=== PATIENT | female | born 1980 | race Caucasian/White ===

== ENCOUNTER 2017-07-09 21:59 | Emergency (ER) | payer SELFPAY ==
[2017-07-09 22:08] VITALS: BP 131/82; BMI 36.8
[2017-07-09 22:53] LABS: SERUM PREGNANCY TEST, QUAL NEGATIVE <10 mIU/mL
[2017-07-09 22:54] LABS: APPEARANCE,URINE CLOUDY (CLEAR); BACTERIA,URINE 2+ /HPF (Negative); COLOR,URINE ORANGE (YELLOW); RBC,URINE NONE SEEN /HPF (NEGATIVE); SQUAMOUS EPITHELIAL CELL,UR FEW /HPF (NEGATIVE)
[2017-07-09] MEDS ORDERED: LEVAQUIN TAB 750 MG PO STA (23:09)
[2017-07-09] MEDS ORDERED: PYRIDIUM PO STA (23:10)
[2017-07-09] MEDS ORDERED: MOTRIN TAB 800 MG PO STA (23:11)
[2017-07-09] MEDS ORDERED: LEVAQUIN TAB 250 MG ONE (23:14)
[2017-07-09] MEDS ORDERED: PYRIDIUM PO ONE (23:14)
[2017-07-09] MEDS ORDERED: LEVAQUIN TAB 500 MG ONE (23:14)
[2017-07-09] MEDS ORDERED: MOTRIN TAB 800 MG PO ONE (23:14)
--- NOTE | 2017-07-09 23:24 | DR.GENAD ---
HPI - PCP Primary Care Physician: morro - Complaint/Symptoms Chief Complaint Doctors Comments: Patient is complainingof left lower back pain and lower abdominal pain with burning when she urinates for the past three days getting worst today. She denies fever, chills, nausea or vomiting but states it shore everytime she urinates. States she is a patient of Stephania Miles. states she has been taking the AZO without imrpovement. Chief Complaint:: BURNING AND PAIN WITH URINATION; URINARY FREQUENCY; CHILLS; LOWER ABDOMINAL PAIN; RIGHT AND LEFT FLANK PAIN Self Treatment fo Chief Complaint: AZO TID SINCE TUESDAY; CRANBERRY JUICE AND WATER - Nurses notes reviewed Nurses Notes Review: Yes - Source History Provided: Patient - Mode of Arrival Mode of Arrival: Ambulatory - Timing Onset of Chief Complaint: 07/06/17 Came on: Gradually - Duration Duration: Constant Duration: Hours, Days - Location Location: left lower back and lower left abdomen - Severity Severity: Moderate - Modifying Factors Worsens:: movement; urination Improves:: medicine helped for a while PMH - PMH Past Medical History: Yes Past Medical History: Hyperthyroidism Past Surgical History: Yes Past Surgical History Comment: HERNIA REPAIR - Family History History of Family Medical Conditions: Yes Family Medical History: Diabetes Mellitus, Cancer, Sudden Cardiac - Social History Type of Tobacco Use: None Alcohol Use: Occasionally Do you use any recreational Drugs:: No Lives With: Family Lives Where: Home - infectious screening In the last 2 months have you had wt loss of >10#?: NO Have you had fever, night sweats or hemotysis?: No Have you traveled outside the country in the last 6 months?: No Isolation: Standard ROS - Review of Systems Constitutional: No Symptoms Reported. negative: See HPI, Chills, Diaphoresis, Fever, Malaise, Weakness, Irritable, Fatigue, Loss of Appetite, Other Eyes: No Symptoms Reported ENTM: No Symptoms Reported. negative: See HPI, Ear Pain, Ear Discharge, Pulling on Ears, Hearing Loss, Nose Pain, Nose Discharge, Epistaxis, Nose Congestion, Mouth Pain, Mouth Swelling, Loose Teeth, Drooling, Throat Pain, Throat Swelling, Ear Foreign Body Respiratoy: No Symptoms Reported. negative: See HPI, Productive Cough, Non- Productive Cough, Moist Cough, Dry Cough, Hacking Cough, Barking Cough, Brassy Cough, Orthopnea, Short of Breath, Stridor, Wheezing, Hemoptysis, Other Gastrointestinal/Abdominal: No Symptoms Reported, Abdominal Pain. negative: See HPI, Constipation, Diarrhea, Nausea, Vomiting, Food Intolerance, Other Genitourinary: No Symptoms Reported, Dysuria, Frequency, Pain. negative: See HPI, Discharge, Hematuria, Bleeding, Other Neurological: No Symptoms Reported Musculoskeletal: No Symptoms Reported, Back Pain Integumentary: No Symptoms Reported. negative: See HPI, Change in Color, Change in Hair/Nails, Dryness, Lesions, Lumps, Rash, Itching, Wound, Bruises, Juandice, Other Hematologic/Lymphatic: No Symptoms Reported. negative: See HPI, Anemia, Blood Clots, Easy Bleeding, Easy Bruising, Swollen Glands, Lymphadenopathy, Other Endocrine: No Symptoms Reported. negative: See HPI, Excessive Sweating, Flushing, Intolerance to Cold, Intolerance to Heat, Increased Hunger, Increased Thirst, Increased Urine, Unexplained Weight Gain, Unexplained Weight Loss, Failure to Thrive, Decreased Appetite, Other Psychiatric: No Symptoms Reported. negative: See HPI, Anxiety, Depression, Hallucinations, Excessive crying, Suicidal, Other PE - Vital Signs Vitals: Temperature 98.3 F Pulse Rate 104 Respiratory Rate 20 Blood Pressure 131/82 O2 Sat by Pulse Oximetry 96 - General Limitations: No Limitations, Language Barrier, Physical Limitation General Appearance: Alert, In No Apparent Distress, Appears Intoxicated, Lethargic - Head Head Exam: Normal Inspection, Atraumatic, Normocephalic, Other - Eyes Eye exam: Normal Appearance, PERRL, EOMI, Scleral Icterus, Nystagmus - ENT ENT Exam: Normal Exam, Normal Oropharynx, Normal External Ear Exam, Mucous Membranes Moist, TM's Normal Bilaterally External Ear Exam: Normal External Inspection TM/Canal Exam: Bilateral Normal Nose Exam: Normal Nose Exam Mouth Exam: Normal Inspection. negative: Drooling, Trismus, Lip Swelling, Tongue Elevation, Tongue Swelling, Laceration, Other Throat Exam: Normal Inspection - Neck Neck Exam: Normal Inspection, Full ROM, Trachea Midline. negative: Tenderness, Meningismus, Lymphadenopathy, Thyromegaly, Other - Chest Chest Inspection: Normal Inspection - Respiratory Respiratory Exam: Normal Lung Sounds Bilat Respiratory Exam: Bilateral Clear to Auscultation - Cardiovascular Cardiovascular Exam: Regular Rate, Normal Rhythm, Normal Heart Sounds. negative : Bradycardia, Tachycardia, Irregular Rhythm, Systolic Murmur, Diastolic Murmur , Rubs, Gallop, Clicks, JVD, +S1, +S2, +S3, +S4, Other - Abdominal Exam Abdominal Exam: Normal Inspection, Normal Bowel Sounds, Soft, Guarding Abdominal Tenderness: LLQ, Suprapubic, Moderate - Extremities Extremities Exam: Normal Inspection, Full ROM, Normal Capillary Refill. negative: Tenderness, Edema, Joint Swelling, Calf Tenderness, Other - Back Back Exam: Normal Inspection, Full ROM, Tenderness, (L) CVA Tenderness, Paraspinal Tenderness - Neurologic Neurological Exam: Alert, Oriented X3, CN II-XII Intact, Normal Gait, Reflexes Normal - Psychiatric Psychiatric Exam: Normal Affect, Normal Mood. negative: Depressed, Agitated, Anxious, Flat Affect, Manic, Homicidal Ideation, Suicidal Ideation, Other - Skin Skin Exam: Warm, Dry, Intact, Normal Color ROR - Labs Reviewed Laboratory: HCG, Qual Negative <10 mIU/mL 07/09/17 22:30 Specimen Type Clean catch urine 07/09/17 22:26 Urine Color [place] (YELLOW) 07/09/17 22:26 Urine Appearance Cloudy (CLEAR) 07/09/17 22:26 Urine RBC None seen /HPF (NEGATIVE) 07/09/17 22:26 Urine WBC Tntc /HPF (NEGATIVE) 07/09/17 22:26 Ur Squamous Epith Cells Few /HPF (NEGATIVE) 07/09/17 22:26 Urine Bacteria 2+ /HPF (Negative) 07/09/17 22:26 Ur Culture Indicated? Yes/culture set up 07/09/17 22:26 Micro UA Comment Unable to perform (-) 07/09/17 22:26 - Diagnosis Discharge Problem: Urinary tract infection, acute, Dysuria - Discharge Plan Disposition: 01 HOME, SELF-CARE Condition: Stable Prescriptions: Cephalexin [KEFLEX CAP 500 MG *] 500 mg PO TID PRN #30 cap PRN Reason: Phenazopyridine HCl [Pyridium] 200 mg PO TID PRN #14 tablet PRN Reason: - Follow ups/Referrals Follow ups/Referrals: Prince Matos [Primary Care Provider] - 3 days - Instructions Instructions: Urinary Tract Infection, Adult
== END 2017-07-09 23:50 | disposition home or self-care (01) ==
LOC: ER 21:59
DX: N39.0 Urinary tract infection, site not specified (principal); B96.29 Other Escherichia coli [E. coli] as the cause of diseases classified elsewhere; R30.0 Dysuria
CPT/HCPCS: 36415; 81015; 84703; 87086; 87088; 87186; 99282

== ENCOUNTER 2020-04-16 06:36 | Inpatient (IN) ==
[~2020-04-16 06:36] MED LIST: DIPRIVAN VIAL ONE; NORCURON INJ 10 MG VIAL ONE; QUELICIN (OR ANECTINE) ONE; ROBINUL ONE; SUPRANE ONE; VERSED ONE; ZOFRAN INJ 4 MG VIAL ONE
[2020-04-16] MEDS: D5 1/2 NS 1000 ML 1,000 ML IV SCH ×3 (06:38→23:00)
[2020-04-16] MEDS ORDERED: ANCEF VIAL 1 GRAM IVP ONE (06:38)
[2020-04-16] MEDS ORDERED: ANCEF 1 GRAM IV PREMIX* 2 G/100 ML BAG IV ONE (06:48)
[2020-04-16] MEDS ORDERED: ProvayBLUE 0.5% ONE (06:57)
[2020-04-16] MEDS ORDERED: BETADINE SOLN ONE (06:58)
[2020-04-16 07:11] VITALS: BMI 34.1
[2020-04-16] MEDS ORDERED: FENTANYL INJ 250 mcg ONE (07:21)
[2020-04-16] MEDS ORDERED: DILAUDID INJ ONE ×2 (08:42→09:31)
[2020-04-16] MEDS ORDERED: D5 1/2 NS 1000 ML 1,000 ML IV ONE (08:51)
[2020-04-16] MEDS ORDERED: SUPRANE ONE (09:01)
[2020-04-16] MEDS ORDERED: REGLAN INJ 10 MG VIAL IVP PRN (09:19)
[2020-04-16] MEDS ORDERED: BENADRYL INJ 50 MG VIAL IVP PRN (09:19)
[2020-04-16] MEDS ORDERED: PHENERGAN INJ 25 MG IM PRN (09:19)
[2020-04-16] MEDS ORDERED: ZOFRAN INJ 4 MG VIAL IVP PRN (09:19)
[2020-04-16] MEDS ORDERED: DILAUDID INJ IVP PRN (09:19)
[2020-04-16] MEDS ORDERED: D5 1/2 NS 1000 ML 1,000 ML IV SCH (10:12)
[2020-04-16] MEDS: BENADRYL INJ 50 MG VIAL IVP PRN (10:26)
[2020-04-16] MEDS: MORPHINE SULFATE PCA 30 MG IVP PRN ×2 (10:28→14:44)
[2020-04-16] MEDS: ZOFRAN INJ 4 MG VIAL IVP PRN ×2 (13:29→17:28)
[2020-04-16] MEDS: TORADOL 30 MG VIAL IVP PRN ×2 (14:13→21:22)
[2020-04-17 05:56] LABS: BLOOD UREA NITROGEN 6 mg/dL (7-18); CALCIUM 7.7 mg/dL (8.5-10.1); CARBON DIOXIDE 25.6 mmol/L (21-32); CHLORIDE 107 mmol/L (98-107); COR NA(FOR HYPERGLY) 139 mmol/L (136-145); SODIUM 139 mmol/L (136-145); eGFR NON BLACK RACES > 60 (>60)
[2020-04-17 06:13] LABS: BASOPHILS % (AUTO) 0.2 % (0.2-1.0); EOSINOPHILS % (AUTO) 0.8 % (0.9-2.9); HEMOGLOBIN 10.1 g/dL (12.0-16.0); LYMPHOCYTES # (AUTO) 1.4 X10^3/uL (1.3-2.9); LYMPHOCYTES % (AUTO) 28.3 % (21.0-51.0); MEAN CORPUSCULAR HEMOGLOBIN 27.8 pg (27.0-34.0); MEAN CORPUSCULAR HGB CONC 33.7 g/dL (33.0-35.0); MEAN CORPUSCULAR VOLUME 82.5 fL (80.0-100.0); MEAN PLATELET VOLUME 7.9 fL (7.4-11.0); MONOCYTES # (AUTO) 0.5 x10^3/uL (0.3-0.8); MONOCYTES % (AUTO) 9.5 % (0.0-13.0); NEUTROPHILS % (AUTO) 61.2 % (42.0-75.0); PLATELET COUNT 199 X10^3/uL (150.0-450.0); RED BLOOD COUNT 3.63 X10^6/uL (3.5-5.4); RED CELL DISTRIBUTION WIDTH 15.5 % (11.6-16.5); WHITE BLOOD COUNT 4.9 X10^3/uL (3.6-10.0)
[2020-04-17] MEDS: TORADOL 30 MG VIAL IVP PRN ×3 (06:20→22:55)
[2020-04-17] MEDS: D5 1/2 NS 1000 ML 1,000 ML IV SCH (06:39)
[2020-04-17] MEDS ORDERED: BACTROBAN TOPICAL OINT ONE (08:21)
[2020-04-17] MEDS: LASIX PO SCH (08:24)
[2020-04-17] MEDS: ESTRACE PO SCH (08:25)
[2020-04-17] MEDS: MOTRIN TAB 800 MG PO PRN ×2 (08:25→14:24)
[2020-04-17] MEDS: COLACE CAP 100 MG PO SCH ×2 (08:26→20:42)
[2020-04-17] MEDS: BACTROBAN TOPICAL OINT TOP SCH ×2 (08:26→14:25)
[2020-04-17] MEDS: PHENERGAN INJ 25 MG IM PRN ×3 (10:00→20:41)
[2020-04-17] MEDS: PERCOCET TAB 5/325 MG PO PRN ×2 (11:49→20:41)
[2020-04-17] MEDS: LOVENOX INJ 40 MG SYR SC SCH (11:59)
[2020-04-17] MEDS ORDERED: SYNTHROID 75 mcg TAB PO SCH (16:30)
[2020-04-17] MEDS: BENADRYL INJ 50 MG VIAL IVP PRN (22:56)
[2020-04-18] MEDS: BACTROBAN TOPICAL OINT TOP SCH ×2 (02:39→05:50)
[2020-04-18] MEDS: MOTRIN TAB 800 MG PO PRN (07:30)
[2020-04-18 08:14] VITALS: BP 112/65
[2020-04-18] MEDS: ESTRACE PO SCH (09:07)
[2020-04-18] MEDS: COLACE CAP 100 MG PO SCH (09:07)
[2020-04-18] MEDS: LASIX PO SCH (09:07)
[2020-04-18] MEDS: TORADOL 30 MG VIAL IVP PRN (09:08)
[2020-04-18] MEDS: LOVENOX INJ 40 MG SYR SC SCH (09:08)
== END 2020-04-18 10:35 | disposition home or self-care (01) | DRG 743 ==
LOC: MED/SURG 06:36
PROVIDERS: ADMIT Specialist; ATTEND Specialist
DX: N92.5 Other specified irregular menstruation; D25.9 Leiomyoma of uterus, unspecified
CPT/HCPCS: 36415; 80048; 85025; A4216; A4222; J0330; J0690; J1170; J1200; J1650; J1885; J2250; J2271; J2405; J2550; J2704; J2765; J3010; J3490; S5010